=== PATIENT | female | born 1980 | race Caucasian/White ===

== ENCOUNTER → 2019-02-02 | Outpatient (CLI) | payer OTHER ==
[~2019-02-02] MED LIST: SINCALIDE 1.09 MCG in IV NORMAL SALINE 50ML 30 ML IV ONE
--- NOTE | 2019-02-02 09:18 | RAD ---
Examination: ABD PELVIS RETROPERITON DOPP History: Abdominal pain; median arcuate ligament syndrome Comparison/Correlation: None Findings: Abdominal aortic flow velocity is 106 cm/s proximally, 134 cm/s at the mid abdominal aorta, and 114 cm/s distally. Superior mesenteric artery has a velocity of 170 cm/s proximally, 172 cm/s in its midportion, and 166 cm/s distally. Celiac artery has a flow velocity of 134 cm/s on expiration and 67 cm/s with inspiration when the patient was supine. With the patient standing, celiac artery flow velocity on expiration is 70 cm/s and on inspiration is 50 cm/s. Impression: No hemodynamically significant stenosis identified. Electronically signed by: Michael Galeana MD (02/02/2019 9:15 AM) [facility]
--- NOTE | 2019-02-02 12:25 | RAD ---
Examination: NM HEPATOBILIARY SCAN W PHARM History: Abdominal pain Comparison/Correlation: None Findings: 5.5 mCi technetium 99 Choletec was intravenously administered for purposes other than a very significant. Uptake of radiotracer by the liver is within normal limits. Gallbladder is visualized by 10 minutes. Radiotracer is present within small bowel also by 10 minutes. Following 60 minutes, 1.09 mcg Kinevac was intravenously administered. Gallbladder ejection fraction of 78 percent is identified over the course of 29 minutes. Impression: Normal hepatobiliary scintigraphy. No cholecystitis. Normal gallbladder ejection fraction. Electronically signed by: Michael Galeana MD (02/02/2019 12:22 PM) [facility]
== END | disposition home or self-care (01) ==
LOC: US 07:39
PROVIDERS: ATTEND Surgery
DX: R10.9 Unspecified abdominal pain (principal); I77.4 Celiac artery compression syndrome
CPT/HCPCS: 76770; 78227; A9537; J2805